=== PATIENT | male | born 1965 | race Caucasian/White ===

== ENCOUNTER 2018-04-07 10:33 | Emergency (ER) | payer BC, OTHER ==
[2018-04-07 10:48] VITALS: BP 163/87; PULSE 82; TEMP 98; BMI 27.3
[2018-04-07] MEDS ORDERED: ACETAMINOPHEN 500 MG TABLET (FP) PO ONE (12:17)
[2018-04-07] MEDS ORDERED: diazePAM 5 MG TABLET PO ONE (12:17)
[2018-04-07] MEDS ORDERED: LIDOCAINE 5% TOPICAL PATCH TP ONE (12:18)
[2018-04-07] MEDS ORDERED: diazePAM 5 MG TABLET ONE (12:24)
[2018-04-07] MEDS ORDERED: LIDOCAINE 5% TOPICAL PATCH ONE (12:24)
[2018-04-07] MEDS ORDERED: ACETAMINOPHEN 325 MG TABLET (FP) ONE (12:24)
--- NOTE | 2018-04-07 12:27 | PDOC ---
History of Present Illness <Delfin Fleming - Last Filed: 04/07/18 13:46> - General History Source: Patient Exam Limitations: No Limitations - History of Present Illness Initial Comments: 04/07/18 12:21 Patient is a 52M with history of DM, HTN, HLD here today complaining of back pain that onset last night. Patient states that he was holding his back in extension when he suddenly started having pain in his lower back. Patient took an oxycodone with no relief, 800mg of motrin at 8am improved his symptoms, but he was not bale to walk so he cam eto the hospital. Denies fevers, chills, nausea, vomiting. Denies IVDA, cancer history, focal weakness, urinary retention /incontinence, saddle anesthesia. Patient has not had back pain like this before. <Shayne Freitas - Last Filed: 04/07/18 14:14> - General Chief Complaint: Back Pain Stated Complaint: BACK PAIN Time Seen by Provider: 04/07/18 11:57 Past History <Delfin Fleming - Last Filed: 04/07/18 13:46> - Past Medical History COPD: No Diabetes: Yes HTN: Yes Hypercholesterolemia: Yes - Immunization History Immunization Up to Date: No - Suicide/Smoking/Psychosocial Hx Smoking History: Never smoked Have you smoked in the past 12 months: No Information on smoking cessation initiated: No Hx Alcohol Use: No Drug/Substance Use Hx: No <Shayne Freitas - Last Filed: 04/07/18 14:14> - Past Medical History Allergies/Adverse Reactions: Allergies Allergy/AdvReac Type Severity Reaction Status Date / Time No Known Allergies Allergy Verified 04/07/18 10:45 Home Medications: Ambulatory Orders Diazepam [Valium] 2 mg PO BID PRN #10 tablet MDD 2 tabs 04/07/18 Lidocaine 5% Patch [Lidoderm -] 1 patch TP DAILY #3 patch 04/07/18 Naproxen 500 mg PO BID PRN #30 tablet 04/07/18 Review of Systems - Review of Systems Able to Perform ROS?: Yes Comments:: 04/07/18 12:25 GENERAL/CONSTITUTIONAL: No fever or chills. No weakness. HEAD, EYES, EARS, NOSE AND THROAT: No change in vision. No sore throat. CARDIOVASCULAR: No chest pain or shortness of breath RESPIRATORY: No cough, wheezing, or hemoptysis. GASTROINTESTINAL: No nausea, vomiting, diarrhea or constipation. GENITOURINARY: No dysuria, frequency, or change in urination. MUSCULOSKELETAL: No joint or muscle swelling or pain. No neck +back pain. SKIN: No rash NEUROLOGIC: No headache, vertigo, loss of consciousness, or change in strength/ sensation. ALLERGIC/IMMUNOLOGIC: No hives or skin allergy. <Shayne Freitas - Last Filed: 04/07/18 14:14> *Physical Exam - Vital Signs Last Vital Signs Temp Pulse Resp BP Pulse Ox 98.0 F 82 16 163/87 96 04/07/18 10:45 04/07/18 10:45 04/07/18 10:45 04/07/18 10:45 04/07/18 10:45 <Delfin Fleming - Last Filed: 04/07/18 13:46> - Vital Signs Last Vital Signs Temp Pulse Resp BP Pulse Ox 98.0 F 82 16 163/87 96 04/07/18 10:45 04/07/18 10:45 04/07/18 10:45 04/07/18 10:45 04/07/18 10:45 - Physical Exam Comments: 04/07/18 12:27 GENERAL: Awake, alert, and fully oriented, in no acute distress BACK: Nontender midline, tender to palpation in lower lateral back, R>L, no deformities or bruising noted HEAD: No signs of trauma, normocephalic, atraumatic EYES: PERRLA, EOMI, sclera anicteric, conjunctiva clear ENT: Auricles normal inspection, hearing grossly normal, nares patent, oropharynx clear without exudates. Moist mucosa NECK: Normal ROM, supple, no lymphadenopathy, JVD, or masses LUNGS: No distress, speaks full sentences, clear to auscultation bilaterally HEART: Regular rate and rhythm, normal S1 and S2, no murmurs, rubs or gallops, peripheral pulses normal and equal bilaterally. ABDOMEN: Soft, nontender, normoactive bowel sounds. No guarding, no rebound. No masses EXTREMITIES: Normal inspection, Normal range of motion, no edema. No clubbing or cyanosis. NEUROLOGICAL: Cranial nerves II through XII grossly intact. Normal speech, 5/5 strength in foot extension/flexion, 5/5 strength in great toe extension, no focal neuro deficits. SKIN: Warm, Dry, normal turgor, no rashes or lesions noted. <Shayne Freitas - Last Filed: 04/07/18 14:14> Moderate Sedation - Procedure Monitoring Vital Signs: Procedure Monitoring Vital Signs Temperature 98.0 F 04/07/18 10:45 Pulse Rate 82 04/07/18 10:45 Respiratory Rate 16 04/07/18 10:45 Blood Pressure 163/87 04/07/18 10:45 O2 Sat by Pulse Oximetry (%) 96 04/07/18 10:45 <Delfin Fleming - Last Filed: 04/07/18 13:46> - Procedure Monitoring Vital Signs: Procedure Monitoring Vital Signs Temperature 98.0 F 04/07/18 10:45 Pulse Rate 82 04/07/18 10:45 Respiratory Rate 16 04/07/18 10:45 Blood Pressure 163/87 04/07/18 10:45 O2 Sat by Pulse Oximetry (%) 96 04/07/18 10:45 <Shayne Freitas - Last Filed: 04/07/18 14:14> ED Treatment Course - Medications Given in the ED: ED Medications Discontinued Medications Generic Name Dose Route Start Last Admin Trade Name Freq PRN Reason Stop Dose Admin Acetaminophen 975 mg 04/07/18 12:17 04/07/18 12:30 Tylenol - PO 04/07/18 12:18 975 mg ONCE ONE Administration Diazepam 5 mg 04/07/18 12:17 04/07/18 12:30 Valium - PO 04/07/18 12:18 5 mg ONCE ONE Administration Lidocaine 1 patch 04/07/18 12:18 04/07/18 12:35 Lidoderm Patch - TP 04/07/18 12:19 1 patch ONCE ONE Administration <Delfin Fleming - Last Filed: 04/07/18 13:46> Medical Decision Making - Medical Decision Making 04/07/18 12:28 Patient is 52M with history of HTN, HLD, DM here today with lower back. Vitals normal and stable. No red flags on history for further imaging or labs as part of workup. Will attempt to pain control and ambulate patient. Has PCP follow up available. 04/07/18 14:11 Patient ambulating, pain improved, asking to go home. <Shayne Freitas - Last Filed: 04/07/18 14:14> *DC/Admit/Observation/Transfer <Delfin Fleming - Last Filed: 04/07/18 13:46> - Discharge Dispostion Decision to Admit order: No <Shayne Freitas - Last Filed: 04/07/18 14:14> Diagnosis at time of Disposition: Back pain - Discharge Dispostion Disposition: HOME Condition at time of disposition: Good - Prescriptions Prescriptions: Diazepam [Valium] 2 mg PO BID PRN #10 tablet MDD 2 tabs PRN Reason: Muscle Spasms Lidocaine 5% Patch [Lidoderm -] 1 patch TP DAILY #3 patch Naproxen 500 mg PO BID PRN #30 tablet PRN Reason: Pain - Patient Instructions Printed Discharge Instructions: DI for Low Back Pain Additional Instructions: Please follow up with your primary care doctor. Please return to the ED immediately if you have any new, worsening or concerning symptoms, especially fever, urinary incontinence, or inability to walk. Please take the naproxen twice a day for the next five days, then take it as needed. The lidocaine patches may not be covered by your insurance, but the over the counter patches are acceptable. Please do not drive or operate heavy machinery after taking the valium.
--- NOTE | 2018-04-07 13:31 | PDOC ---
Attending Attestation - Resident Resident Name: Shayne Freitas - ED Attending Attestation I have performed the following: I have examined & evaluated the patient, The case was reviewed & discussed with the resident, I agree w/resident's findings & plan - HPI HPI: 04/07/18 13:28 52-year-old male presents with atraumatic low back strain sustained yesterday morning when he was leaning back to look under her desk. [place] an initial tweak in his lower back, worsening since then particularly last night. The pain is localized to his lower back, no radiation to the lower extremities, no associated bowel or bladder issues or numbness or weakness. Took a family member 's oxycodone and 800 mg ibuprofen this morning with some relief, presents for evaluation brought in by EMS after he had a sharp exacerbation while attempting to walk downstairs. no history of recurring low back issues, though has pulled his back in the past. - Physicial Exam PE: 04/07/18 13:30 Well-appearing lying in stretcher with his legs crossed Exam is atraumatic No midline spine tenderness 5 out of 5 flexion/extension of both hips/knees/ankle/toes. Neurovascular intact distally. Slight reproducible discomfort to the right low back without swelling or hematoma - Medical Decision Making 04/07/18 13:31 52-year-old male with atraumatic right low back strain, no red flags on history or physical exam. No indication for emergent imaging Pain control, muscle relaxants Reassess 04/07/18 13:46 markedly improved after meds, now sat up and ambulating steadily. nvi.
[2018-04-07] MEDS ORDERED: LIDOCAINE PATCH REMOVAL MC SCH (22:00)
== END 2018-04-07 14:19 | disposition home or self-care (01) ==
LOC: JERFT 10:33 → JER 10:33
DX: S39.012A Strain of muscle, fascia and tendon of lower back, initial encounter (principal); X50.1XXA Overexertion from prolonged static or awkward postures, initial encounter; Y93.89 Activity, other specified; Y92.018 Other place in single-family (private) house as the place of occurrence of the external cause; Y99.8 Other external cause status; I10 Essential (primary) hypertension; E78.5 Hyperlipidemia, unspecified; E11.9 Type 2 diabetes mellitus without complications
CPT/HCPCS: 99281-25